=== PATIENT | male | born 1945 | race Caucasian/White ===

== ENCOUNTER → 2019-01-11 09:58 | Outpatient (CLI) | payer MEDICARE, SELFPAY ==
--- NOTE | 2019-01-11 10:10 | XR_ITS ---
XR ribs RT 2V HISTORY: Pain following injury ITS.REASON: CHEST PAIN ORDERING PHYSICIAN: Hal Yusuf MD PATIENT AGE: 73 years Comparison: None FINDINGS: Nondisplaced fracture involves the lateral aspect of the right seventh rib. No evidence of pneumothorax or other significant anomalies. IMPRESSION: Nondisplaced right seventh rib fracture
--- NOTE | 2019-01-11 10:10 | XR_ITS ---
XR chest 2V HISTORY: Chest pain following injury ITS.REASON: CHEST PAIN ORDERING PHYSICIAN: Hal Yusuf MD PATIENT AGE: 73 years COMPARISON: None FINDINGS: Unremarkable cardiovascular structures. Right hemidiaphragm is slightly elevated age indeterminate. No previous exams are available for comparison. Linear density is present in the left lung base may be due to an area of atelectasis or fibrosis. Suggest follow-up to confirm stability. There is a nondisplaced right seventh rib fracture which is better seen on the subsequent rib detail films. No evidence of pneumothorax IMPRESSION: Nondisplaced right seventh rib fracture. Left lower lobe atelectasis or fibrosis.
== END ==
PROVIDERS: PCP Family Medicine; Visit Provider Family Medicine
DX: R07.9 Chest pain, unspecified (principal)
CPT/HCPCS: 71046; 71100

== ENCOUNTER → 2022-03-14 09:53 | Outpatient (CLI) | payer MEDICARE, SELFPAY ==
--- NOTE | 2022-03-14 09:58 | XR_ITS ---
FINAL REPORT CLINICAL HISTORY: .left arm pain FINDINGS: LEFT HUMERUS 2 views were obtained. There is no acute fracture or dislocation. There is mild hypertrophic change of the acromioclavicular joint. There is no soft tissue abnormality. IMPRESSION: No acute bony abnormality. Reviewed, Interpreted and Dictated by Holland Reese MD Transcribed by Serenity Brunson Authenticated and [facility]
--- NOTE | 2022-03-14 09:59 | XR_ITS ---
FINAL REPORT CLINICAL HISTORY: INJURY LT UPPER ARM FINDINGS: LEFT ELBOW 4 views were obtained. There is no acute fracture or dislocation. The joint spaces are intact. There is prominent soft tissue swelling posterior to the olecranon. There is a 6 mm calcific or ossific density posterior to the olecranon. IMPRESSION: Findings may be due to calcific or ossific tendinitis. A foreign body is considered less likely. Reviewed, Interpreted and Dictated by Holland Reese MD Transcribed by Serenity Brunson Authenticated and [facility]
== END ==
PROVIDERS: PCP Family Medicine; Visit Provider Physician Assistant
DX: S49.92XA Unspecified injury of left shoulder and upper arm, initial encounter (principal)
CPT/HCPCS: 73060; 73080